=== PATIENT | male | born 1990 | race Two or more races ===

== ENCOUNTER 2017-07-10 23:11 | Emergency (ER) | payer MEDICAID ==
[~2017-07-10] VITALS: Ht 170.2 cm; Wt 72.6 kg
[2017-07-10 23:15] VITALS: BP 134/92
[2017-07-11] MEDS ORDERED: IBUPROFEN 600 MG TAB PO ONE (02:30)
== END 2017-07-11 02:31 | disposition home or self-care (01) ==
LOC: ER 23:11
DX: S93.401A Sprain of unspecified ligament of right ankle, initial encounter (principal); F17.210 Nicotine dependence, cigarettes, uncomplicated; F15.10 Other stimulant abuse, uncomplicated; X50.1XXA Overexertion from prolonged static or awkward postures, initial encounter; Y93.89 Activity, other specified; Y99.8 Other external cause status; Y92.89 Other specified places as the place of occurrence of the external cause
CPT/HCPCS: 73600; 73620

== ENCOUNTER 2020-08-24 02:47 | Emergency (ER) | payer MEDICAID ==
[~2020-08-24] VITALS: Ht 172.7 cm; Wt 77.1 kg
[2020-08-24] MEDS ORDERED: ONDANSETRON HCL 4 MG/2 ML VIAL IV ONE (04:15)
[2020-08-24] MEDS ORDERED: HYDROmorphone HCL 2 MG/ML VL IV ONE (04:15)
[2020-08-24] MEDS ORDERED: KETOROLAC TROMETH 60MG/2ML VIAL IM ONE (08:15)
[2020-08-24 08:44] VITALS: BP 117/89
== END 2020-08-24 08:47 | disposition home or self-care (01) ==
LOC: ER 02:53
DX: S82.892A Other fracture of left lower leg, initial encounter for closed fracture (principal); F17.210 Nicotine dependence, cigarettes, uncomplicated; F12.10 Cannabis abuse, uncomplicated; F15.10 Other stimulant abuse, uncomplicated; X58.XXXA Exposure to other specified factors, initial encounter; Y93.89 Activity, other specified; Y99.8 Other external cause status; Y92.89 Other specified places as the place of occurrence of the external cause
CPT/HCPCS: 73590; 96372; 96374; 96375; 99285; J1170; J1885; J2405